=== PATIENT | female | born 1955 | race Caucasian/White ===

== ENCOUNTER → 2018-02-27 | Outpatient (CLI) | payer OTHER | END | disposition home or self-care (01) | LOC: CFH 14:04 | PROVIDERS: ATTEND Nurse Practitioner Family | DX: M54.2 Cervicalgia (principal) | CPT/HCPCS: 72050 ==

== ENCOUNTER → 2018-08-16 | Outpatient (CLI) | payer OTHER | END | disposition home or self-care (01) | LOC: RAD 12:33 | PROVIDERS: ATTEND Nurse Practitioner Family | DX: I65.23 Occlusion and stenosis of bilateral carotid arteries (principal); R09.89 Other specified symptoms and signs involving the circulatory and respiratory systems | CPT/HCPCS: 93880 ==

== ENCOUNTER → 2019-02-27 | Outpatient (CLI) | payer OTHER ==
[~2019-02-27] MED LIST: REGADENOSON 0.4 MG/5 ML SYRINGE ONE
== END | disposition home or self-care (01) ==
LOC: CFH 06:43
PROVIDERS: ATTEND Internal Medicine Cardiovascular Disease
DX: I11.9 Hypertensive heart disease without heart failure (principal)
CPT/HCPCS: 78452; 93017; 93306; A9502; J2785

== ENCOUNTER 2019-03-17 12:40 | Day surgery (SDC) | payer OTHER ==
[~2019-03-17] VITALS: Ht 157.5 cm; Wt 74.5 kg
[2019-03-17] MEDS ORDERED: CEFAZOLIN PMX 1GM/50ML 50 ML IV ONE (13:00)
[2019-03-17] MEDS ORDERED: SODIUM CHLORIDE 0.9% 1,000 ML IV SCH (13:11)
[2019-03-17 13:50] VITALS: BP 121/74
[2019-03-17 13:50] LABS: BASOPHILS # (AUTO) 0.05 x10^3/uL (0-0.1); BASOPHILS % (AUTO) 1 % (0-1); EOSINOPHILS # (AUTO) 0.13 x10^3/uL (0-0.4); EOSINOPHILS % (AUTO) 2 % (1-7); LYMPHOCYTES # (AUTO) 1.92 x10^3/uL (1-3.4); LYMPHOCYTES % (AUTO) 24 % (22-44); MD NO; MEAN CORPUSCULAR HGB CONC 34.4 g/dL (32.4-35.8); MEAN CORPUSCULAR VOLUME 92.9 fL (80-100); MEAN PLATELET VOLUME 6.6 fL (7.4-10.4); MONOCYTES # (AUTO) 0.46 x10^3/uL (0.2-0.8); MONOCYTES % (AUTO) 6 % (2-9); NEUTROPHILS # (AUTO) 5.28 x10^3/uL (1.8-6.8); NEUTROPHILS % (AUTO) 67 % (42-75); PLATELET COUNT 291 x10^3/uL (130-400); RED BLOOD COUNT 4.46 x10^6/uL (3.82-5.3); RED CELL DISTRIBUTION WIDTH 13.7 % (9.6-15.2)
[2019-03-17 13:59] LABS: ANION GAP 7 mmol/L (5-15); CALCIUM 9.1 mg/dL (8.5-10.1); CHLORIDE 114 mmol/L (98-107); CREATININE 0.96 mg/dL (0.55-1.02)
[2019-03-17] MEDS ORDERED: SERT100T32 PO (14:01)
[2019-03-17] MEDS ORDERED: ASPI-650 PO (14:01)
[2019-03-17] MEDS ORDERED: ERGO500017 PO (14:01)
[2019-03-17] MEDS ORDERED: ROPI0.5T2 PO (14:01)
[2019-03-17] MEDS ORDERED: NORT25CA78 PO (14:01)
[2019-03-17] MEDS ORDERED: BUPR-86 PO (14:01)
[2019-03-17] MEDS ORDERED: PANT20TA3 PO (14:01)
[2019-03-17] MEDS ORDERED: DICL50TA4 PO (14:01)
[2019-03-17] MEDS ORDERED: ATOR-2 PO (14:01)
[2019-03-17] MEDS ORDERED: LIDOCAINE 1%, 20ML ONE (14:16)
[2019-03-17] MEDS ORDERED: MIDAZOLAM 1 MG/ML, 5ML ONE (14:37)
[2019-03-17] MEDS ORDERED: HEPARIN 1,000 UNITS/ML, 10ML ONE (14:37)
[2019-03-17] MEDS ORDERED: FENTANYL PF 100 MCG/2ML ONE (14:37)
[2019-03-17] MEDS ORDERED: PROTAMINE SULFATE 10 MG/ML, 25ML ONE (14:37)
[2019-03-17] MEDS ORDERED: NITROGLYCERIN 5 MG/ML, 10ML ONE (14:37)
[2019-03-17] MEDS ORDERED: FLUMAZENIL 0.1 MG/1 ML, 5ML ONE (14:37)
[2019-03-17] MEDS ORDERED: NALOXONE 1 MG/ML, 2ML ONE (14:37)
[2019-03-17] MEDS ORDERED: VISIPAQUE 270 MG/ML, 50ML BOTTLE ONE (15:00)
[2019-03-17] MEDS ORDERED: HYDROcodone/APAP 5/325 TABLET ONE (16:03)
== END 2019-03-17 16:48 | disposition home or self-care (01) ==
LOC: OUT 12:40
PROVIDERS: ATTEND Surgery
DX: I70.212 Atherosclerosis of native arteries of extremities with intermittent claudication, left leg (principal); I10 Essential (primary) hypertension; G43.909 Migraine, unspecified, not intractable, without status migrainosus; E78.5 Hyperlipidemia, unspecified; J44.9 Chronic obstructive pulmonary disease, unspecified
CPT/HCPCS: 36200; 36415; 75630; 80048; 85025; 99156; 99157; C1751; C1760; C1769; C1894; J0690; J1644; J2250; J3010; J7030; Q9966; J2720; J2310

== ENCOUNTER → 2019-04-02 | Outpatient (CLI) | payer OTHER ==
[~2019-04-02] MED LIST changes: +ASPI-650 PO; +ATOR-2 PO; +BUPR-86 PO; +DICL50TA4 PO; +ERGO500017 PO; +NORT25CA78 PO; +PANT20TA3 PO; -REGADENOSON 0.4 MG/5 ML SYRINGE ONE; +ROPI0.5T2 PO; +SERT100T32 PO
== END | disposition home or self-care (01) ==
LOC: CVU 07:16
PROVIDERS: ATTEND Surgery
DX: I73.9 Peripheral vascular disease, unspecified (principal)
CPT/HCPCS: 93970

== ENCOUNTER 2019-04-21 14:56 | Day surgery (SDC) | payer OTHER ==
[2019-04-18 12:30] LABS: BASOPHILS # (AUTO) 0.05 x10^3/uL (0-0.1); BASOPHILS % (AUTO) 1 % (0-1); EOSINOPHILS # (AUTO) 0.16 x10^3/uL (0-0.4); EOSINOPHILS % (AUTO) 2 % (1-7); LYMPHOCYTES # (AUTO) 2.08 x10^3/uL (1-3.4); LYMPHOCYTES % (AUTO) 24 % (22-44); MD NO; MEAN CORPUSCULAR HEMOGLOBIN 31.2 pg (27.0-34.8); MEAN CORPUSCULAR HGB CONC 33.4 g/dL (32.4-35.8); MEAN CORPUSCULAR VOLUME 93.3 fL (80-100); MONOCYTES # (AUTO) 0.44 x10^3/uL (0.2-0.8); MONOCYTES % (AUTO) 5 % (2-9); NEUTROPHILS % (AUTO) 68 % (42-75); PLATELET COUNT 304 x10^3/uL (130-400); RED BLOOD COUNT 4.37 x10^6/uL (3.82-5.3); RED CELL DISTRIBUTION WIDTH 14.3 % (9.6-15.2)
[2019-04-18 12:48] LABS: ANION GAP 6 mmol/L (5-15); CHLORIDE 111 mmol/L (98-107)
[2019-04-18 12:50] LABS: CREATININE 0.84 mg/dL (0.55-1.02)
[~2019-04-21] VITALS: Ht 157.5 cm; Wt 77.4 kg
[~2019-04-21 14:56] MED LIST changes: +AMLO-150 PO; +BIOTINE PO; +LIDOCAINE-MPF 1%, 5ML ONE; +LORA0.5T PO; +VISIPAQUE 270 MG/ML, 50ML BOTTLE ONE
[2019-04-21 15:09] VITALS: BP 104/66
[2019-04-21] MEDS ORDERED: SODIUM CHLORIDE 0.9% 1,000 ML IV SCH (15:11)
[2019-04-21] MEDS ORDERED: CEFAZOLIN 2,000 MG in SODIUM CHLORIDE 0.9% 50 ML IV ONE (15:11)
[2019-04-21] MEDS ORDERED: NALOXONE 1 MG/ML, 2ML ONE (15:44)
[2019-04-21] MEDS ORDERED: HEPARIN 1,000 UNITS/ML, 10ML ONE (15:44)
[2019-04-21] MEDS ORDERED: FENTANYL PF 100 MCG/2ML ONE (15:44)
[2019-04-21] MEDS ORDERED: MIDAZOLAM 1 MG/ML, 5ML ONE (15:44)
[2019-04-21] MEDS ORDERED: FLUMAZENIL 0.1 MG/1 ML, 5ML ONE (15:44)
[2019-04-21] MEDS ORDERED: PROTAMINE SULFATE 10 MG/ML, 25ML ONE (15:44)
[2019-04-21] MEDS ORDERED: CLOPIDOGREL 300 MG TABLET ONE (16:17)
== END 2019-04-21 19:00 | disposition home or self-care (01) ==
LOC: SDC 14:56
PROVIDERS: ATTEND Surgery
DX: I70.211 Atherosclerosis of native arteries of extremities with intermittent claudication, right leg (principal); E78.5 Hyperlipidemia, unspecified; J44.9 Chronic obstructive pulmonary disease, unspecified; I10 Essential (primary) hypertension; G43.909 Migraine, unspecified, not intractable, without status migrainosus; Z87.891 Personal history of nicotine dependence; Z82.49 Family history of ischemic heart disease and other diseases of the circulatory system
CPT/HCPCS: 36415; 37224; 75710; 80048; 85025; 99156; 99157; C1725; C1751; C1769; C1894; J0690; J1644; J2250; J3010; J7030; Q9966; J2720; J2310

== ENCOUNTER → 2019-05-05 | Outpatient (CLI) | payer OTHER ==
[~2019-05-05] MED LIST changes: -LIDOCAINE-MPF 1%, 5ML ONE; -VISIPAQUE 270 MG/ML, 50ML BOTTLE ONE
== END | disposition home or self-care (01) ==
LOC: CVU 15:47
PROVIDERS: ATTEND Surgery
DX: I65.23 Occlusion and stenosis of bilateral carotid arteries (principal); I10 Essential (primary) hypertension; E78.5 Hyperlipidemia, unspecified; I73.9 Peripheral vascular disease, unspecified; Z72.0 Tobacco use
CPT/HCPCS: 93880

== ENCOUNTER 2019-05-30 09:53 | Outpatient (CLI) | payer OTHER ==
[2019-05-30] MEDS ORDERED: OMNIPAQUE 350 MG/ML, 100ML BOTTLE ONE (15:53)
== END 2019-05-30 23:59 | disposition home or self-care (01) ==
LOC: CFH 09:53
PROVIDERS: ATTEND Surgery
DX: I65.23 Occlusion and stenosis of bilateral carotid arteries (principal); I70.0 Atherosclerosis of aorta; E04.2 Nontoxic multinodular goiter; M85.88 Other specified disorders of bone density and structure, other site
CPT/HCPCS: 70498; 71275; 82565; Q9967

== ENCOUNTER → 2019-09-09 | Outpatient (CLI) | payer OTHER ==
[~2019-09-09] MED LIST changes: +OMNIPAQUE 350 MG/ML, 100ML BOTTLE ONE
== END | disposition home or self-care (01) ==
LOC: CFH 12:32
PROVIDERS: ATTEND Surgery
DX: I65.23 Occlusion and stenosis of bilateral carotid arteries (principal)
CPT/HCPCS: 70496; 70498; Q9967

== ENCOUNTER 2019-10-08 20:30 | Emergency (ER) | payer OTHER ==
[~2019-10-08] VITALS: Ht 157.5 cm; Wt 78.0 kg
[~2019-10-08 20:30] MED LIST changes: -OMNIPAQUE 350 MG/ML, 100ML BOTTLE ONE
[2019-10-08 20:38] VITALS: BP 103/56
[2019-10-08] MEDS ORDERED: HYDROcodone/APAP 5/325 TABLET ONE (20:57)
[2019-10-08] MEDS ORDERED: HYDROcodone/APAP 5/325 TABLET PO ONE (21:00)
[2019-10-08] MEDS ORDERED: GABA300C10 PO (21:30)
[2019-10-08] MEDS ORDERED: ASPI-496 PO (21:30)
--- NOTE | 2019-10-08 22:18 | NUR ---
ASSUMED CARE FOR THIS PT
[2019-10-08] MEDS ORDERED: DIAZEPAM 5 MG TABLET PO ONE (22:30)
--- NOTE | 2019-10-08 22:30 | NUR ---
[facility] contacted regarding need for TLSO brace. Order, facesheet, height, weight, and injury/xray read also included as this was requested from Chris from [facility]. Info faxed to [phone] and conformation received. Chris states he will be here in less than 30 min.
[2019-10-08] MEDS ORDERED: DIAZEPAM 5 MG TABLET ONE (23:22)
--- NOTE | 2019-10-08 23:29 | NUR ---
PT MEDICATED ORDERED AND AWAITING ERP RECHECK
== END 2019-10-09 01:01 | disposition home or self-care (01) ==
LOC: ED 23:17
DX: S92.001A Unspecified fracture of right calcaneus, initial encounter for closed fracture (principal); S32.000A Wedge compression fracture of unspecified lumbar vertebra, initial encounter for closed fracture; I10 Essential (primary) hypertension; M54.5 Low back pain; M25.571 Pain in right ankle and joints of right foot; W01.0XXA Fall on same level from slipping, tripping and stumbling without subsequent striking against object, initial encounter; Y93.89 Activity, other specified; Y92.009 Unspecified place in unspecified non-institutional (private) residence as the place of occurrence of the external cause; Y99.8 Other external cause status
CPT/HCPCS: 29515; 72110; 72131; 99284

== ENCOUNTER 2019-11-21 12:48 | Outpatient (CLI) | payer OTHER ==
[~2019-11-21 12:48] MED LIST changes: +ASPI-496 PO; +GABA300C10 PO
== END 2019-11-21 23:59 | disposition home or self-care (01) ==
LOC: RAD 12:48
PROVIDERS: ATTEND Physician Assistant Surgical
DX: M48.54XD Collapsed vertebra, not elsewhere classified, thoracic region, subsequent encounter for fracture with routine healing (principal)
CPT/HCPCS: 72100

== ENCOUNTER → 2019-12-04 | Outpatient (CLI) | payer OTHER | END | disposition home or self-care (01) | LOC: RAD 10:11 | PROVIDERS: ATTEND Physician Assistant Surgical | DX: M48.54XA Collapsed vertebra, not elsewhere classified, thoracic region, initial encounter for fracture (principal); S92.001A Unspecified fracture of right calcaneus, initial encounter for closed fracture; F32.9 Major depressive disorder, single episode, unspecified; I10 Essential (primary) hypertension; I73.9 Peripheral vascular disease, unspecified; X58.XXXA Exposure to other specified factors, initial encounter; Y93.89 Activity, other specified; Y92.89 Other specified places as the place of occurrence of the external cause; Y99.8 Other external cause status; F17.200 Nicotine dependence, unspecified, uncomplicated; Z90.49 Acquired absence of other specified parts of digestive tract; Z90.710 Acquired absence of both cervix and uterus | CPT/HCPCS: 72148 ==

== ENCOUNTER → 2019-12-12 | Outpatient (CLI) | payer OTHER ==
[~2019-12-12] MED LIST changes: -ROPI0.5T2 PO; +ROPI0.5T4 PO
== END | disposition home or self-care (01) ==
LOC: RAD 13:12
PROVIDERS: ATTEND Family Medicine
DX: M85.88 Other specified disorders of bone density and structure, other site (principal); Z90.49 Acquired absence of other specified parts of digestive tract
CPT/HCPCS: 72072; 72100

== ENCOUNTER 2019-12-19 12:14 | Outpatient (CLI) | payer OTHER | END 2019-12-19 23:59 | disposition home or self-care (01) | LOC: RAD 12:14 | PROVIDERS: ATTEND Physician Assistant Surgical | DX: Z02.9 Encounter for administrative examinations, unspecified (principal) ==

== ENCOUNTER 2019-12-25 10:05 | Day surgery (SDC) | payer OTHER ==
[~2019-12-25] VITALS: Ht 157.5 cm; Wt 75.7 kg
[2019-12-25 10:47] VITALS: BP 103/67
[2019-12-25] MEDS ORDERED: LACTATED RINGERS 1,000 ML IV SCH (10:52)
[2019-12-25] MEDS ORDERED: CLOP75TA PO (10:57)
[2019-12-25] MEDS ORDERED: GARLIQUE PO (10:57)
[2019-12-25] MEDS ORDERED: NEURIVA PO (10:57)
[2019-12-25] MEDS ORDERED: EZET10TA70 PO (10:57)
[2019-12-25 11:22] LABS: ALANINE AMINOTRANSFERASE 38 U/L (12-78); ALBUMIN 3.9 g/dL (3.4-5.0); ANION GAP 7 mmol/L (5-15); CALCIUM 9.2 mg/dL (8.5-10.1); CHLORIDE 111 mmol/L (98-107); CREATININE 0.97 mg/dL (0.55-1.02)
[2019-12-25 11:24] LABS: ALKALINE PHOSPHATASE 146 U/L (45-117); BILIRUBIN,TOTAL 0.4 mg/dL (0.2-1.0); TOTAL PROTEIN 7.6 g/dL (6.4-8.2)
[2019-12-25] MEDS ORDERED: SUCCINYLCHOLINE 20 MG/ML, 10ML ONE (12:03)
[2019-12-25] MEDS ORDERED: ROCURONIUM 10 MG/ML,10ML ONE (12:03)
[2019-12-25] MEDS ORDERED: ONDANSETRON 2MG/ML, 2ML ONE (12:03)
[2019-12-25] MEDS ORDERED: DEXAMETHASONE 4 MG/ML, 1ML ONE (12:03)
[2019-12-25] MEDS ORDERED: CEFAZOLIN 1,000 MG ONE (12:03)
[2019-12-25] MEDS ORDERED: MIDAZOLAM 1 MG/ML, 2ML ONE (12:03)
[2019-12-25] MEDS ORDERED: FENTANYL PF 250 MCG/5ML ONE (12:03)
[2019-12-25] MEDS ORDERED: PHENYLEPHRINE 10 MG/ML ONE (12:03)
[2019-12-25] MEDS ORDERED: PROPOFOL 10 MG/ML, 20ML ONE (12:03)
[2019-12-25] MEDS ORDERED: LIDOCAINE 1%, 20ML ONE (12:13)
[2019-12-25] MEDS ORDERED: EPHEDRINE 50 MG/ML, 1ML IVPush PRN (13:30)
[2019-12-25] MEDS ORDERED: ACETAMINOPHEN 325 MG TABLET PO PRN (13:30)
[2019-12-25] MEDS ORDERED: PROMETHAZINE 12.5 MG SUPP PR PRN (13:30)
[2019-12-25] MEDS ORDERED: OXYcodone 5 MG/5 ML ORAL.SOL UDC PO PRN (13:30)
[2019-12-25] MEDS ORDERED: HYDROmorphone 2 MG/ML, 1ML IVPush PRN (13:30)
[2019-12-25] MEDS ORDERED: ALBUTEROL SULFATE 2.5 MG/3 ML NPPB PRN (13:30)
[2019-12-25] MEDS ORDERED: MIDAZOLAM 1 MG/ML, 2ML IV PRN (13:30)
[2019-12-25] MEDS ORDERED: FENTANYL PF 100 MCG/2ML IV PRN (13:30)
[2019-12-25] MEDS ORDERED: DIAZEPAM 5 MG/ML, 2ML IVPush PRN (13:30)
[2019-12-25] MEDS ORDERED: MEPERIDINE/PF 25MG/ML,1ML IVPush PRN (13:30)
[2019-12-25] MEDS ORDERED: LABETALOL 5MG/ML, 20ML IV PRN (13:30)
[2019-12-25] MEDS ORDERED: ONDANSETRON 2MG/ML, 2ML IV PRN (13:30)
[2019-12-25] MEDS ORDERED: PROMETHAZINE 25 MG/ML, 1ML IV PRN (13:30)
[2019-12-25] MEDS ORDERED: ONDANSETRON ODT 8 MG PO PRN (13:30)
[2019-12-25] MEDS ORDERED: hydrALAzine 20 MG/ML, 1ML IV PRN (13:30)
== END 2019-12-25 16:30 | disposition home or self-care (01) ==
LOC: OUT 10:05 → EDSTATUS 12:00 → OUT 16:30
PROVIDERS: ATTEND Physician Assistant Surgical
DX: S22.088G Other fracture of T11-T12 vertebra, subsequent encounter for fracture with delayed healing (principal); I10 Essential (primary) hypertension; E78.5 Hyperlipidemia, unspecified; K21.9 Gastro-esophageal reflux disease without esophagitis; J44.9 Chronic obstructive pulmonary disease, unspecified; G43.909 Migraine, unspecified, not intractable, without status migrainosus; F41.8 Other specified anxiety disorders; Z79.02 Long term (current) use of antithrombotics/antiplatelets; Z79.82 Long term (current) use of aspirin; Z79.899 Other long term (current) drug therapy; W17.89XD Other fall from one level to another, subsequent encounter
CPT/HCPCS: 22513; 36415; 80053; 93005; C1713; J0330; J0690; J1100; J2250; J2370; J2405; J2704; J3010; J7120

== ENCOUNTER 2020-12-23 07:28 | Outpatient (CLI) | payer MEDICARE ==
[~2020-12-23 07:28] MED LIST changes: +ASPI-1026 PO; -ASPI-650 PO; +CLOP75TA PO; +EZET10TA70 PO; +GARLIQUE PO; +NEURIVA PO; -PANT20TA3 PO; +PANT20TA4 PO; +REGADENOSON 0.4 MG/5 ML SYRINGE ONE
[2020-12-23] MEDS ORDERED: SERT100T32 PO (09:53)
[2020-12-23] MEDS ORDERED: ALEN70TA77 PO (09:53)
== END 2020-12-23 23:59 | disposition home or self-care (01) ==
LOC: CFH 07:28
PROVIDERS: ATTEND Internal Medicine Cardiovascular Disease
DX: Z02.9 Encounter for administrative examinations, unspecified (principal)
CPT/HCPCS: J2785

== ENCOUNTER 2020-12-23 09:17 | Emergency (ER) | payer MEDICARE ==
[~2020-12-23] VITALS: Ht 157.5 cm; Wt 74.6 kg
[~2020-12-23 09:17] MED LIST changes: -REGADENOSON 0.4 MG/5 ML SYRINGE ONE
[2020-12-23] MEDS ORDERED: SERT100T32 PO (09:53)
[2020-12-23] MEDS ORDERED: ALEN70TA77 PO (09:53)
--- NOTE | 2020-12-23 09:55 | NUR ---
SENT HERE FROM [place] FOR [facility] FOR LOW BP. WAS SUPPOSED TO HAVE STRESS TEST TODAY. CARDS=DESIREE. PT REPORTS FEELING DIZZY THE PAST TWO DAYS. PT CALM IN BED IN GOWN WITH CONT EXERCISE TEACHER, SPO2, BP Q 30 MIN, SIDE RAILS UP X2, CALL LIGHT IN REACH. LAB IN ROOM
[2020-12-23] MEDS ORDERED: SODIUM CHLORIDE FLUSH 10ML SYR IVF ONE (10:00)
[2020-12-23] MEDS ORDERED: SODIUM CHLORIDE 0.9% 1,000ML IVBOLUS ONE ×2 (10:00→12:30)
--- NOTE | 2020-12-23 10:09 | NUR ---
LAB/XRAY IN ROOM
[2020-12-23 10:16] LABS: BASOPHILS % (AUTO) 1 % (0-1); EOSINOPHILS % (AUTO) 1 % (1-7); LYMPHOCYTES % (AUTO) 22 % (22-44); MD NO; MEAN CORPUSCULAR HEMOGLOBIN 31.7 pg (27.0-34.8); MEAN CORPUSCULAR HGB CONC 34.6 g/dL (32.4-35.8); MEAN PLATELET VOLUME 6.6 fL (7.4-10.4); MONOCYTES % (AUTO) 4 % (2-9); NEUTROPHILS % (AUTO) 72 % (42-75); PLATELET COUNT 229 x10^3/uL (130-400); RED CELL DISTRIBUTION WIDTH 14.5 % (9.6-15.2)
[2020-12-23 10:26] LABS: ALANINE AMINOTRANSFERASE 49 U/L (12-78); ALBUMIN 3.9 g/dL (3.4-5.0); ANION GAP 9 mmol/L (5-15); CALCIUM 8.9 mg/dL (8.5-10.1); CHLORIDE 113 mmol/L (98-107); CREATININE 0.81 mg/dL (0.55-1.02)
[2020-12-23 10:31] LABS: ALKALINE PHOSPHATASE 94 U/L (45-117); BILIRUBIN,TOTAL 0.5 mg/dL (0.2-1.0); TOTAL PROTEIN 6.9 g/dL (6.4-8.2); TROPONIN I < 0.015 ng/mL (0.000-0.045)
--- NOTE | 2020-12-23 11:15 | NUR ---
TASK RN: PT VOIDED USING COMMODE W/O DIFFICULTY RTD TO NORM W/O INCIDENT. URINE SAMPLE COLLECTED AND SENT TO LAB. PT RTD TO NORM, BP 77/36 HR 90, NAD NOTED, PT ALERT
--- NOTE | 2020-12-23 12:37 | NUR ---
BPs TAKEN ON THE LEGS AND CHARTED. DR. WEISS NOTIFIED. R ARM BP IMPROVED NOW AT 92/60.
--- NOTE | 2020-12-23 13:00 | NUR ---
PT TO CT.
--- NOTE | 2020-12-23 13:08 | NUR ---
PT TO CT
[2020-12-23] MEDS ORDERED: OMNIPAQUE 350 MG/ML, 75ML BOTTLE ONE (13:21)
--- NOTE | 2020-12-23 13:37 | NUR ---
TASK RN: PT OOB TO BSC, RN STANDBY ASSIST.
--- NOTE | 2020-12-23 13:39 | NUR ---
PT RTD TO BED W/0 DIFFICULTY. ALL MONITORS IN PLACE AND CALL LIGHT W/I REACH. NAD NOTED
[2020-12-23 13:57] LABS: MICROSCOPIC NOT IND
[2020-12-23 14:15] VITALS: BP 87/42
== END 2020-12-23 14:17 | disposition home or self-care (01) ==
LOC: ED 10:03
DX: I95.9 Hypotension, unspecified (principal); I10 Essential (primary) hypertension; R42 Dizziness and giddiness; R94.31 Abnormal electrocardiogram [ECG] [EKG]; R06.02 Shortness of breath; R06.00 Dyspnea, unspecified; R07.89 Other chest pain; F17.200 Nicotine dependence, unspecified, uncomplicated
CPT/HCPCS: 36415; 71045; 71275; 80053; 81003; 83605; 84484; 85025; 93005; 96360; 96361; 99285; J7030; Q9967

== ENCOUNTER → 2021-01-20 | Outpatient (CLI) | payer MEDICARE ==
[~2021-01-20] MED LIST changes: +ALEN70TA77 PO
== END | disposition home or self-care (01) ==
LOC: CVU 11:28
PROVIDERS: ATTEND Nurse Practitioner Family
DX: I65.23 Occlusion and stenosis of bilateral carotid arteries (principal); I25.10 Atherosclerotic heart disease of native coronary artery without angina pectoris; M79.662 Pain in left lower leg; M79.604 Pain in right leg; E78.5 Hyperlipidemia, unspecified; I11.9 Hypertensive heart disease without heart failure; I34.8 Other nonrheumatic mitral valve disorders; I70.293 Other atherosclerosis of native arteries of extremities, bilateral legs; F17.210 Nicotine dependence, cigarettes, uncomplicated
CPT/HCPCS: 93306; 93880; 93922; 93925; 93978

== ENCOUNTER 2021-02-02 07:25 | Outpatient (CLI) | payer MEDICARE ==
[2021-02-02] MEDS ORDERED: REGADENOSON 0.4 MG/5 ML SYRINGE ONE (07:30)
== END 2021-02-02 23:59 | disposition home or self-care (01) ==
LOC: CFH 07:25
PROVIDERS: ATTEND Nurse Practitioner Family
DX: Z02.9 Encounter for administrative examinations, unspecified (principal)
CPT/HCPCS: J2785

== ENCOUNTER 2021-03-04 14:25 | Outpatient (CLI) | payer MEDICARE ==
[~2021-03-04 14:25] MED LIST changes: +OMNIPAQUE 350 MG/ML, 150 ML BOTTLE ONE
== END 2021-03-04 23:59 | disposition home or self-care (01) ==
LOC: RAD 14:25
PROVIDERS: ATTEND Surgery
DX: I65.23 Occlusion and stenosis of bilateral carotid arteries (principal); I77.1 Stricture of artery; I70.213 Atherosclerosis of native arteries of extremities with intermittent claudication, bilateral legs
CPT/HCPCS: 70498; 71275; Q9967

== ENCOUNTER → 2021-04-20 | Outpatient (CLI) | payer MEDICARE ==
[~2021-04-20] MED LIST changes: +CHOL500015 PO; +FENO54TA17 PO; +MONT10TA17 PO; -OMNIPAQUE 350 MG/ML, 150 ML BOTTLE ONE
[2021-04-20 10:54] LABS: BASOPHILS % (AUTO) 1 % (0-1); EOSINOPHILS % (AUTO) 1 % (1-7); LYMPHOCYTES % (AUTO) 26 % (22-44); MEAN CORPUSCULAR HEMOGLOBIN 31.7 pg (27.0-34.8); MEAN CORPUSCULAR HGB CONC 34.1 g/dL (32.4-35.8); MEAN PLATELET VOLUME 6.7 fL (7.4-10.4); MONOCYTES % (AUTO) 6 % (2-9); NEUTROPHILS % (AUTO) 66 % (42-75); PLATELET COUNT 284 x10^3/uL (130-400); RED BLOOD COUNT 4.74 x10^6/uL (3.82-5.3); RED CELL DISTRIBUTION WIDTH 14.4 % (9.6-15.2)
[2021-04-20 11:05] LABS: ALANINE AMINOTRANSFERASE 37 U/L (12-78); ALBUMIN 3.9 g/dL (3.4-5.0); ANION GAP 6 mmol/L (5-15); CALCIUM 9.4 mg/dL (8.5-10.1); CHLORIDE 109 mmol/L (98-107); CREATININE 0.93 mg/dL (0.55-1.02)
[2021-04-20 11:08] LABS: ALKALINE PHOSPHATASE 74 U/L (45-117); BILIRUBIN,TOTAL 0.5 mg/dL (0.2-1.0); TOTAL PROTEIN 7.3 g/dL (6.4-8.2)
== END | disposition home or self-care (01) ==
LOC: STAR 09:17
PROVIDERS: ATTEND Surgery
DX: Z01.818 Encounter for other preprocedural examination (principal); M48.54XA Collapsed vertebra, not elsewhere classified, thoracic region, initial encounter for fracture; R94.31 Abnormal electrocardiogram [ECG] [EKG]; Z20.822 Contact with and (suspected) exposure to COVID-19
CPT/HCPCS: 36415; 71046; 80053; 85025; 93005; U0003; U0005

== ENCOUNTER → 2021-05-03 | Outpatient (CLI) | payer MEDICARE | END | disposition home or self-care (01) | LOC: RAD 14:45 | PROVIDERS: ATTEND Nurse Practitioner Family | DX: G31.89 Other specified degenerative diseases of nervous system (principal); R25.1 Tremor, unspecified; I77.9 Disorder of arteries and arterioles, unspecified | CPT/HCPCS: 70450 ==

== ENCOUNTER → 2021-05-06 | Outpatient (CLI) | payer MEDICARE ==
[~2021-05-06] MED LIST changes: +GADOTERATE 7.5 MMOL/15ML SYR ONE
== END | disposition home or self-care (01) ==
LOC: RAD 09:14
PROVIDERS: ATTEND Surgery
DX: I65.23 Occlusion and stenosis of bilateral carotid arteries (principal)
CPT/HCPCS: 70553; A9575